=== PATIENT | female | born 1955 | race Caucasian/White ===

== ENCOUNTER 2021-11-28 14:31 | Outpatient (CLI) | payer OTHER, SELFPAY ==
--- NOTE | 2021-11-28 14:40 | CRLHL7_ITS ---
For Patients: As a result of the Century Cures Act, medical imaging exams and procedure reports are released immediately into your electronic medical record. You may view this report before your referring provider. If you have questions, please contact your health care provider. BILATERAL SCREENING MAMMOGRAM WITH COMPUTER-AIDED DETECTION AND TOMOSYNTHESIS TECHNIQUE: CC and MLO views were obtained. These mammographic images have been obtained using full-field digital technique. These mammographic images were interpreted with the benefit of computer-aided detection. Breast tomosynthesis was used in this interpretation. COMPARISON FILM: 11/22/20, 11/20/19, 11/18/18. FINDINGS: There are scattered areas of fibroglandular density. IMPRESSION: There is no radiographic evidence for malignancy. ASSESSMENT: BI-RADS Category 1: Negative RECOMMENDATION: Routine screening mammogram in 1 year. A lay language report of this examination will be provided to the patient. DMITRIY GUTIERREZ M.D. Diagnostic Radiologist [email or web address] Transcribed: 8:[address]/Dictated by: Dmitriy Gutierrez MD @ 12/01/2021 1:42:00 PM (Electronically Signed)
== END 2021-11-28 14:32 | disposition home or self-care (01) ==
LOC: MAMMO 14:32
PROVIDERS: PCP Physician Assistant Medical; Visit Provider Physician Assistant Medical
DX: Z12.31 Encounter for screening mammogram for malignant neoplasm of breast (principal)
CPT/HCPCS: 77063; 77067

== ENCOUNTER 2022-01-03 13:13 | Emergency (ER) | payer OTHER, SELFPAY ==
[2022-01-03 13:20] VITALS: BP 173/97; PULSE 73; RESP 18; TEMP 36.2; O2SAT 97; BMI 27.1
--- NOTE | 2022-01-03 13:53 | ED_ITS ---
HPI - Headache General Date Seen: 01/03/22 Chief Complaint: Headache/Migraine Stated Complaint: Cold Symptoms Time Seen by Provider: 01/03/22 13:26 Source: patient Mode of arrival: ambulatory Limitations: no limitations History of Present Illness HPI Narrative: Pleasant lady in no apparent distress she appears here for evaluation after she was unable to get an urgent care. She describes approximately week-long history of pressure in her facial region, within increasing discharged on the back of her throat and slight cough. Your symptoms characteristic of her chronic run use itis when she has an acute exacerbation. She has been trying her stay nasal steroids, with no relief, she usually gets antibiotics and a Medrol Dosepak for marked improvement. She denies no fevers no chills, she has had no shortness of breath associated with this or chest pain. She has a no nausea vomiting. She works as paraprofessional teaching special education students. She has had previous sinus surgery, for deviated septum, sees our ENT surgeon. MD elicited complaint: headache Related Data Home Medications Medication Instructions Recorded Confirmed tretinoin 0.025 % topical cream 1 applic topical ONCE 11/18/21 11/18/21 albuterol sulfate 90 mcg/actuation 2 puff inhalation Q4H PRN 12/01/21 aerosol inhaler aspirin 81 mg chewable tablet 81 mg PO QDAY 12/01/21 fluticasone furoate 100 1 inh inhalation DAILY 12/01/21 mcg-vilanterol 25 mcg/dose inhalation powder (Breo Ellipta) fluticasone propionate 50 2 spray intranasal QDAY 12/01/21 mcg/actuation nasal spray,suspension Previous Rx's Medication Instructions Recorded simvastatin 20 mg tablet 20 mg PO QDAY #90 tabs 11/04/21 tretinoin 0.025 % topical cream 1 applic topical ONCE #45 grams 11/18/21 hydrochlorothiazide 25 mg tablet 25 mg PO DAILY #90 tabs 12/02/21 omeprazole 20 mg capsule,delayed 20 mg PO DAILY #90 caps 12/02/21 release cefdinir 300 mg capsule 300 mg PO BID #20 caps 01/03/22 methylprednisolone 4 mg tablets in See Rx Instructions PO .COMPLEX 01/03/22 a dose pack (Medrol (Bernardino)) #21 ea Allergies Allergy/AdvReac Type Severity Reaction Status Date / Time amoxicillin Allergy Mild nausea and Verified 11/18/21 15:09 GI distress meperidine AdvReac Severe Nausea Verified 11/18/21 15:09 Sulfa Antibiotics Allergy Severe nausea, Uncoded 11/18/21 15:09 headache Clavulanate Allergy Mild nausea and Uncoded 11/18/21 15:09 GI distress Review of Systems Status of ROS: Reports: 6 or more systems reviewed and unremarkable except as noted in History and below [facility] Medical History Encounter for annual physical exam Encounter for preoperative screening laboratory testing for severe acute respiratory syndrome coronavirus 2 (SARS-CoV-2) Fall Pain of left forearm Strain of left shoulder Wrinkles Surgical History History of bladder suspension procedure History of bunionectomy of left great toe History of hysterectomy History of surgical procedure Family History Mother Breast cancer, Onset Age: 86 Sister Breast cancer, Onset Age: 46 Father Parkinsonism Other Dementia Family history of blood clots High blood pressure Social History Narrative: current nonsmoker does not use illicit drugs occasional alcohol consumption Smoking Status: Never smoker Exam Narrative: Exam Narrative: She appears nontoxic in no apparent distress very nice lady speaking normally. Her pupils are equal round reactive to light there is no scleral icterus noted. Her TMs bilaterally are normal, there is no tragus sign. No mastoid tenderness is noted, her oropharynx shows a thin posterior exudate, but normal tonsillar tissue, with no significant redness swelling. Her mouth opening is normal, she has some mild lymphadenopathy in her anterior change that is slightly tender. Her neck is supple full range of motion with no meningismus is noted. Skin was no petechiae rashes in cranial nerves 3-12 are normal. There is no parotid swelling. Nasal mucosa is healthy bilaterally, with site redness. Trans illumination is negative. Const: Vital Signs, click to edit/add: Vital Signs - 24 hr 01/03/22 13:20 Temperature 97.1 F L Pulse Rate [Right Pulse Oximeter] 73 Respiratory Rate 18 Blood Pressure [Ri ght Upper Arm] 173/97 H Pulse Oximetry 97 Oxygen Delivery Me thod Room Air Documenting provider has reviewed patient's vital signs: yes Course Course Hospital Course: I discussed with I do not think it is unreasonable to try the cefdinir which she was on in the past, and also the Medrol Dosepak I will send the sent to the pharmacy, I will have her follow-up with ENT on ongoing basis. Vital Signs Vital signs: Initial Vital Signs Temperature 97.1 F L 01/03/22 13:20 Temperature Source Temporal Artery Scan 01/03/22 13:20 Pulse Rate 73 01/03/22 13:20 Respiratory Rate 18 01/03/22 13:20 Blood Pressure 173/97 H 01/03/22 13:20 Blood Pressure Mean 122 01/03/22 13:20 Blood Pressure Position Sitting 01/03/22 13:20 Pulse Oximetry 97 01/03/22 13:20 Oxygen Delivery Method 01/03/22 13:20 Vital Signs Temperature 97.1 F L 01/03/22 13:20 Pulse Rate 73 01/03/22 13:20 Respiratory Rate 18 01/03/22 13:20 Blood Pressure 173/97 H 01/03/22 13:20 Pulse Oximetry 97 01/03/22 13:20 Oxygen Delivery Method 01/03/22 13:20 Temperature 97.1 F L 01/03/22 13:20 Pulse Rate 73 01/03/22 13:20 Respiratory Rate 18 01/03/22 13:20 Blood Pressure 173/97 H 01/03/22 13:20 Pulse Oximetry 97 01/03/22 13:20 Oxygen Delivery Method 01/03/22 13:20 MDM - Headache Differential Diagnosis Differential diagnosis: Likely migraine, tension headache, subarachnoid hemorrhage, headache, meningitis, sinusitis and postconcussion syndrome Medical Records Attestation: I reviewed the patient's medical records. Lab Data Attestation: I reviewed the patient's lab results. Discharge Plan Discharge Clinical Impression: Sinusitis Patient Disposition: Home, Self-Care Condition: Stable Instructions: Sinusitis (ED), Rhinosinusitis (DC) Additional Instructions: Home rest medications as directed, you were I noted on the Medrol Dosepak and that is what I prescribed to the pharmacy. Follow-up with as needed. Prescriptions: New cefdinir 300 mg capsule 300 mg PO BID Qty: 20 0RF methylprednisolone [Medrol (Bernardino)] 4 mg tablets,dose pack See Rx Instructions .ROUTE .COMPLEX Qty: 21 0RF Rx Instructions: orally per package directions No Action tretinoin 0.025 % cream 1 applic topical ONCE tretinoin 0.025 % cream 1 applic topical ONCE Qty: 45 0RF simvastatin 20 mg tablet 20 mg PO QDAY Qty: 90 3RF albuterol sulfate 90 mcg/actuation HFA aerosol inhaler 2 puff inhalation Q4H PRN fluticasone furoate-vilanterol [Breo Ellipta] 100-25 mcg/dose blister with device 1 inh inhalation DAILY fluticasone propionate 50 mcg/actuation spray,suspension 2 spray intranasal QDAY Rx Instructions: administer into each nostril aspirin 81 mg tablet,chewable 81 mg PO QDAY hydrochlorothiazide 25 mg tablet 25 mg PO DAILY Qty: 90 0RF omeprazole 20 mg capsule,delayed release(DR/EC) 20 mg PO DAILY Qty: 90 2RF Follow Up/Referrals: Jason Larson, PACeceliaC [Primary Care Provider] - Stand Alone Forms: [employer] Info Instructions
== END 2022-01-03 14:00 | disposition home or self-care (01) ==
PROVIDERS: Emergency Provider Family Medicine; PCP Physician Assistant Medical
DX: J01.90 Acute sinusitis, unspecified (principal)
CPT/HCPCS: 99283

== ENCOUNTER 2022-09-23 07:40 | Outpatient (CLI) | payer OTHER, SELFPAY | END 2022-09-23 07:41 | disposition home or self-care (01) | LOC: NFLDREF 09-26 06:59 | PROVIDERS: PCP Physician Assistant Medical; Referring Provider Physician Assistant Medical; Visit Provider Physician Assistant Medical | DX: Z00.00 Encounter for general adult medical examination without abnormal findings (principal); E78.5 Hyperlipidemia, unspecified; I10 Essential (primary) hypertension; R79.89 Other specified abnormal findings of blood chemistry | CPT/HCPCS: 80053; 80061; 84443 ==

== ENCOUNTER 2022-12-02 11:17 | Outpatient (CLI) | payer OTHER, SELFPAY ==
--- NOTE | 2022-12-02 11:30 | CRLHL7_ITS ---
For Patients: As a result of the Century Cures Act, medical imaging exams and procedure reports are released immediately into your electronic medical record. You may view this report before your referring provider. If you have questions, please contact your health care provider. BILATERAL SCREENING MAMMOGRAM WITH COMPUTER-AIDED DETECTION AND TOMOSYNTHESIS TECHNIQUE: CC and MLO views were obtained. These mammographic images have been obtained using full-field digital technique. These mammographic images were interpreted with the benefit of computer-aided detection. Breast Tomosynthesis was used in this interpretation. COMPARISON FILM: 11/28/21, 12/02/20, 11/20/19. FINDINGS: There are scattered areas of fibroglandular density IMPRESSION: There is no radiographic evidence for malignancy. ASSESSMENT: BI-RADS Category 1: Negative RECOMMENDATION: Routine screening mammogram in 1 year. A lay language report of this examination will be provided to the patient. Dmitriy Rodriguez M.D. Diagnostic Radiologist [email or web address] ASHLY/Dictated by: Dmitriy Rodriguez MD @ 12/03/2022 8:56:00 AM (Electronically Signed)
== END 2022-12-02 11:18 | disposition home or self-care (01) ==
LOC: MAMMO 11:19
PROVIDERS: PCP Physician Assistant Medical; Visit Provider Physician Assistant Medical
DX: Z12.31 Encounter for screening mammogram for malignant neoplasm of breast (principal)
CPT/HCPCS: 77063; 77067

== ENCOUNTER 2023-01-02 10:28 | Outpatient (CLI) | payer OTHER, SELFPAY | END 2023-01-02 10:29 | disposition home or self-care (01) | LOC: NFLDREF 01-06 11:08 | PROVIDERS: PCP Physician Assistant Medical; Referring Provider Physician Assistant Medical; Visit Provider Physician Assistant | DX: R35.0 Frequency of micturition (principal); N39.0 Urinary tract infection, site not specified | CPT/HCPCS: 87086 ==

== ENCOUNTER 2023-02-23 14:40 | Outpatient (CLI) | payer OTHER, SELFPAY | END 2023-02-23 14:41 | disposition home or self-care (01) | LOC: NFLDREF 02-25 11:19 | PROVIDERS: PCP Physician Assistant Medical; Referring Provider Physician Assistant Medical; Visit Provider Physician Assistant Medical | DX: E87.5 Hyperkalemia (principal) | CPT/HCPCS: 84132 ==

== ENCOUNTER 2023-02-25 14:50 | Outpatient (CLI) | payer OTHER, SELFPAY ==
--- NOTE | 2023-02-25 15:00 | CRLHL7_ITS ---
For Patients: As a result of the Century Cures Act, medical imaging exams and procedure reports are released immediately into your electronic medical record. You may view this report before your referring provider. If you have questions, please contact your health care provider. DXA BONE MINERAL DENSITY STUDY Current height (in): 67.0. Weight (lb): 170.0. Menopause age: 49. Ethnicity: White. Reason for exam: Asymptomatic menopausal state. 1. Have you had a previous hip or vertebral fracture? No. 2. Have you had any fractures during your adult life which did not result from significant trauma (e.g., auto accident)? No. 3. Did either of your parents have a hip fracture? No. 4. Do you smoke? No. 5. Have you ever taken Glucocorticoids? No. 6. Do you have rheumatoid arthritis? No. 7. Do you have secondary osteoporosis? No. 8. Do you drink 3 or more alcoholic drinks per day? No. 9. Are you being treated for osteoporosis? No. 10. Have you ever taken any of the following medications: Actonel, Evista, Fosamax, Miacalcin, Reclast, Boniva, Forteo, HRT (i.e. estrogen/hormone therapy), Protelos, Prolia, Vitamin D, Calcium, other ??? please specify. ANSWER: Yes, vitamin D, calcium, HRT. 11. Do you have any of the following medical conditions: Anorexia or bulimia, asthma or emphysema, end stage renal disease, hyperparathyroidism, any seizure disorders, cancer, inflammatory bowel diseases, hysterectomy, other ??? please specify. ANSWER: Yes, asthma, hysterectomy. 12. What was your maximum height (inches)? 68. 13. Do you perform weight bearing exercise regularly? No. 14. Do you regularly consume dairy products? Yes. 15. Do you drink caffeinated beverages? No. 16. At what age did your period start? 15. 17. Are you premenopausal? No. 18. How many full term pregnancies have you had? 2. 19. Have you ever missed your period for more than 6 months in a row (not including or menopause)? No. TECHNIQUE: Bone mineral density study was performed using the [employer]. FINDINGS: The results of the study expressed as bone mineral density (BMD) are as follows: Lumbar spine L1 to L4: BMD: 0.963 g/cm2. T-score: -0.8. Z-score: 1.0. Neck Left: BMD: 0.736 g/cm2. T-score: -1.0. Z-score: 0.5. Right: BMD: 0.708 g/cm2. T-score: -1.3. Z-score: 0.3. Total Left: BMD: 1.005 g/cm2. T-score: 0.5. Z-score: 1.7. Right: BMD: 0.708 g/cm2. T-score: -1.3. Z-score: 0.3. IMPRESSION: Osteopenia. FRAX 10-year Fracture Risk Major Osteoporotic Fracture: 8.3 percent Hip Fracture: 0.7 percent Reported Risk Factors: [place] () Neck BMD = 0.708, BMI = 26.6 Dmitriy Rodriguez M.D. Diagnostic Radiologist [email or web address] SAMANTHA/[email or web address]: Transcribed: 9:05 am DW/Dictated by: Dmitriy Rodriguez MD @ 02/26/2023 12:27:00 PM (Electronically Signed)
== END 2023-02-25 14:51 | disposition home or self-care (01) ==
LOC: RAD 14:51
PROVIDERS: PCP Physician Assistant Medical; Visit Provider Physician Assistant Medical
DX: Z78.0 Asymptomatic menopausal state (principal); M85.89 Other specified disorders of bone density and structure, multiple sites
CPT/HCPCS: 77080

== ENCOUNTER 2023-07-16 09:38 | Outpatient (CLI) | payer OTHER, SELFPAY ==
--- NOTE | 2023-07-16 10:00 | CT_ITS ---
Patient: TRI CHU Facility:?[facility] Patient ID:?[id number] Site Patient ID:?[id number]. Site :?[id number] Study:?CT-Sinus WITHOUT-07/16/2023 10:02:53 AM Ordering Physician:?DR. CONWAY Final Report: INDICATION: Sinusitis. TECHNIQUE: Noncontrast CT images of the paranasal sinuses. COMPARISON: CT sinus 05/18/2019. FINDINGS: No air-fluid levels to suggest acute sinusitis. Small maxillary sinus retention cysts or polyps. Mild right and minimal left maxillary sinus mucosal thickening. The ethmoid infundibula are widely patent. [id number] right and mild left frontal recess mucosal thickening. The frontal sinuses are otherwise clear. Mild mucosal thickening ethmoid air cells. Moderate right and mild left sphenoid sinus mucosal thickening. The sphenoethmoidal recesses are opacified. There is 3 mm rightward nasal septal deviation. No nasal cavity masses. The mastoid air cells are clear. IMPRESSION: 1. Worsening moderate right sphenoid sinus mucosal thickening. There is otherwise mild paranasal sinus mucosal disease. No air-fluid levels to suggest acute sinusitis. 2. Mild rightward nasal septal deviation. Please note that all CT scans at this facility use dose modulation, iterative reconstruction, and/or weight-based dosing when appropriate to reduce radiation dose to as low as reasonably achievable. Dictated by Adarsh Grider MD @ 07/18/2023 6:16:01 PM Signed by:?Adarsh Grider MD @07/18/2023 6:16:01 PM
== END 2023-07-16 09:39 | disposition home or self-care (01) ==
LOC: CT 09:39
PROVIDERS: PCP Physician Assistant Medical; Visit Provider Otolaryngology
DX: J32.9 Chronic sinusitis, unspecified (principal); J32.3 Chronic sphenoidal sinusitis; J34.2 Deviated nasal septum
CPT/HCPCS: 70486

== ENCOUNTER 2023-08-27 09:33 | Day surgery (SDC) | payer OTHER, SELFPAY ==
[2023-08-27] VITALS (13 sets, daily range): BP systolic 138–174; BP diastolic 84–100; PULSE 67–78; RESP 12–25; TEMP 36.4–37.1; O2SAT 93–98; BMI 28.5
[2023-08-27] MEDS: SODIUM CHLORIDE 0.9 % (FLUSH) 10 ML SYRINGE IVF (10:00)
[2023-08-27] MEDS: LACTATED RINGERS 1000 ML 1,000 ML 100 ML IV (10:00)
[2023-08-27] MEDS: ONDANSETRON 2 MG/ML inj 4 MG IVP (10:15)
[2023-08-27] MEDS: OXYMETAZOLINE 0.05% NASAL SPRAY 2 SPRAY NOSTRIL-B (11:00)
[2023-08-27] MEDS: COCAINE HCL 4 % 4 ML SOLUTION NOSTRIL-B (12:00)
[2023-08-27] MEDS: BUPIVACAINE 0.5%/EPINEPHRINE 0.9 MG (30.9 ML) INJECTION (12:04)
[2023-08-27] MEDS: AYR SALINE NASAL GEL 1 APPLIC NOSTRIL-B (12:10)
[2023-08-27] MEDS: MUPIROCIN 1 GM PACKET 1 APPLIC TOPICAL (12:13)
--- NOTE | 2023-08-27 12:20 | P.ENTPROC_ITS ---
Procedure Note Date of procedure: 08/27/23 Procedure: Preop diagnosis septal deviation superior right, bilateral chronic ethmoid sinusitis, right chronic sphenoid sinusitis Postoperative diagnosis same Procedure is nasal septoplasty, endoscopic right sphenoidotomy and complete ethmoidectomy, endoscopic left anterior ethmoidectomy Under general endotracheal anesthesia patient was prepped and draped usual fashion nose decongested and injected. Note that the image guidance system was used with 1.5 mm accuracy. He the left ethmoid bulla was identified and this was confirmed with image guidance. The bulla was opened and anterior ethmoidectomy performed removing a small to moderate amount of polypoid tissue. Incision was made in the septum anterior to the right area 3 deflection. The mucosa overlying the deflection was elevated and then the [place] knife was used to cut through the cartilage and elevate the mucosa on the opposite side. The deflected portion of septal bone cartilage was resected and then trimmed and returned to intraseptal space. The ethmoid bulla was identified and confirmed with image guidance and then opened. A complete ethmoidectomy was performed removing a moderate amount of polypoid tissue. The sphenoid os was identified and confirmed by image guidance and then entered with a suction. A small amount of fluid was aspirated. The opening was enlarged to 4 mm in diameter with a sphenoid punch. Merocel packing was placed in the middle meatus on each side. The patient procedure well was taken recurrent covering in satisfactory condition. Specimens were sent to pathology labeled right sphenoid ethmoid contents and left separately left ethmoid contents. Blood loss was 25 mL. Surgeon: Esvin De Santiago MD
--- NOTE | 2023-08-27 12:25 | W.ANESCHARGE ---
Anesthesia Charges Start Date/Time Anesthesia Start Date: 08/27/23 Anesthesia Start Time: 11:37 Stop Date/Time Anesthesia Stop Date: 08/27/23 Anesthesia Stop Time: 12:24
--- NOTE | 2023-08-27 12:25 | W.ANESCHARGE ---
Anesthesia Charges Start Date/Time Anesthesia Start Date: 08/27/23 Anesthesia Start Time: 11:37 Stop Date/Time Anesthesia Stop Date: 08/27/23 Anesthesia Stop Time: 12:24
[2023-08-27] MEDS: OXYCODONE 5 MG TABLET PO (13:58)
== END 2023-08-27 14:20 | disposition home or self-care (01) ==
PROVIDERS: PCP Physician Assistant Medical; Visit Provider Otolaryngology
PROC: (CPT 31231; principal; 2023-08-27 10:45)
DX: J34.2 Deviated nasal septum (principal); J32.2 Chronic ethmoidal sinusitis; J32.3 Chronic sphenoidal sinusitis
CPT/HCPCS: 30520; 31257; 31254; 00160; 88305; A9270; J0330; J1100; J2405; J2704; J3010; J7120

== ENCOUNTER 2023-09-28 07:39 | Outpatient (CLI) | payer OTHER, SELFPAY | END 2023-09-28 07:40 | disposition home or self-care (01) | LOC: NFLDREF 10-02 12:35 | PROVIDERS: PCP Physician Assistant Medical; Referring Provider Physician Assistant Medical; Visit Provider Physician Assistant Medical | DX: Z00.00 Encounter for general adult medical examination without abnormal findings (principal); I10 Essential (primary) hypertension; E78.2 Mixed hyperlipidemia; K21.9 Gastro-esophageal reflux disease without esophagitis; R73.03 Prediabetes; R79.89 Other specified abnormal findings of blood chemistry | CPT/HCPCS: 80053; 80061; 84443 ==

== ENCOUNTER 2023-12-07 09:18 | Outpatient (CLI) | payer OTHER, SELFPAY ==
--- NOTE | 2023-12-07 09:15 | CRLHL7_ITS ---
For Patients: As a result of the Century Cures Act, medical imaging exams and procedure reports are released immediately into your electronic medical record. You may view this report before your referring provider. If you have questions, please contact your health care provider. BILATERAL SCREENING MAMMOGRAM WITH COMPUTER-AIDED DETECTION AND TOMOSYNTHESIS TECHNIQUE: CC and MLO views were obtained. These mammographic images have been obtained using full-field digital technique. These mammographic images were interpreted with the benefit of computer-aided detection. Breast Tomosynthesis was used in this interpretation. COMPARISON FILM: 12/02/22, 11/28/21, 11/22/20. FINDINGS: There are scattered areas of fibroglandular density. IMPRESSION: There is no radiographic evidence for malignancy. ASSESSMENT: BI-RADS Category 1: Negative RECOMMENDATION: Routine screening mammogram in 1 year. A lay language report of this examination will be provided to the patient. Dmitriy Rodriguez M.D. Diagnostic Radiologist [email or web address] SP/Dictated by: Dmitriy Rodriguez MD @ 12/07/2023 10:47:00 AM (Electronically Signed)
== END 2023-12-07 09:19 | disposition home or self-care (01) ==
PROVIDERS: PCP Physician Assistant Medical; Visit Provider Physician Assistant Medical
DX: Z12.31 Encounter for screening mammogram for malignant neoplasm of breast (principal)
CPT/HCPCS: 77063; 77067

== ENCOUNTER 2023-12-27 10:03 | Outpatient (CLI) | payer OTHER, SELFPAY | END 2023-12-27 10:04 | disposition home or self-care (01) | LOC: NFLDREF 12-31 15:36 | PROVIDERS: PCP Physician Assistant Medical; Referring Provider Physician Assistant Medical; Visit Provider Physician Assistant Medical | DX: R31.9 Hematuria, unspecified (principal); N39.0 Urinary tract infection, site not specified; N30.01 Acute cystitis with hematuria | CPT/HCPCS: 87086 ==

== ENCOUNTER 2023-12-29 15:38 | Outpatient (CLI) | payer OTHER, SELFPAY | END 2023-12-29 15:39 | disposition home or self-care (01) | LOC: FRMREF 15:41 | PROVIDERS: PCP Physician Assistant Medical; Visit Provider Physician Assistant Medical | DX: R10.30 Lower abdominal pain, unspecified (principal) | CPT/HCPCS: 80053 ==

== ENCOUNTER 2024-01-06 07:46 | Outpatient (CLI) | payer OTHER, SELFPAY ==
--- NOTE | 2024-01-06 08:00 | CRLHL7_ITS ---
For Patients: As a result of the Century Cures Act, medical imaging exams and procedure reports are released immediately into your electronic medical record. You may view this report before your referring provider. If you have questions, please contact your health care provider. INDICATION: Recent UTI, still with some pelvic pain. TECHNIQUE: CT abdomen and pelvis without contrast. COMPARISON: CT abdomen and pelvis 10/28/2018 abdominal ultrasound . FINDINGS: Lower chest: Unremarkable. Liver: Normal in size and attenuation. No suspicious masses. Gallbladder and bile ducts: No stones or inflammation. No biliary dilatation. Pancreas: Unremarkable. No mass or inflammation. Spleen: Normal in size. No masses. Adrenal glands: Normal in size. No nodules. Kidneys: Normal in size. No suspicious masses, stones, or hydronephrosis. GI tract: Unremarkable. Normal in caliber. No sign of mass or inflammation. Vasculature: Abdominal aorta is normal in caliber. Lymph nodes: No lymphadenopathy. Peritoneum/Abdominal Wall: Unremarkable. No sign of mass or infiltration. No free air or significant free fluid. Pelvis: Prior hysterectomy. No pelvic masses. Bones: Unremarkable for age. IMPRESSION: No acute findings in the abdomen or pelvis, noting limited evaluation of the soft tissues in the absence of intravenous contrast. Please note that all CT scans at this facility use dose modulation, iterative reconstruction, and/or weight-based dosing when appropriate to reduce radiation dose to as low as reasonably achievable. Dictated by Domenica Carpenter MD @ 01/07/2024 10:53:08 AM (Electronically Signed)
== END 2024-01-06 07:47 | disposition home or self-care (01) ==
LOC: CT 07:46
PROVIDERS: PCP Physician Assistant Medical; Visit Provider Physician Assistant Medical
DX: R10.2 Pelvic and perineal pain (principal); R19.8 Other specified symptoms and signs involving the digestive system and abdomen
CPT/HCPCS: 74176

== ENCOUNTER 2024-09-29 07:35 | Outpatient (CLI) | payer OTHER, SELFPAY | END 2024-09-29 07:36 | disposition home or self-care (01) | LOC: NFLDREF 10-02 20:28 | PROVIDERS: PCP Physician Assistant Medical; Referring Provider Physician Assistant Medical; Visit Provider Physician Assistant Medical | DX: I10 Essential (primary) hypertension (principal); E78.2 Mixed hyperlipidemia; R79.89 Other specified abnormal findings of blood chemistry; R73.03 Prediabetes | CPT/HCPCS: 80053; 80061; 84443 ==

== ENCOUNTER 2025-01-02 14:17 | Outpatient (CLI) | payer OTHER, SELFPAY | END 2025-01-02 14:18 | disposition home or self-care (01) | LOC: NFLDREF 01-08 17:50 | PROVIDERS: PCP Physician Assistant Medical; Referring Provider Physician Assistant Medical; Visit Provider Physician Assistant Medical | DX: N30.00 Acute cystitis without hematuria (principal) | CPT/HCPCS: 77063; 77067; 87086 ==

== ENCOUNTER 2025-01-02 15:45 | Outpatient (CLI) | payer OTHER, SELFPAY ==
--- NOTE | 2025-01-02 16:00 | CRLHL7_ITS ---
For Patients: As a result of the Century Cures Act, medical imaging exams and procedure reports are released immediately into your electronic medical record. You may view this report before your referring provider. If you have questions, please contact your health care provider. INDICATION: BILATERAL SCREENING MAMMOGRAM, ASYMPTOMATIC Y/O FEMALE COMPARISON: 12/07/2023, 12/02/2022, 11/28/2021 TECHNIQUE: Digital mammogram in CC and MLO projections including computer-aided detection (CAD) and tomosynthesis. BREAST COMPOSITION: There are scattered areas of fibroglandular density. FINDINGS: No suspicious findings. ASSESSMENT: BI-RADS 1 Negative RECOMMENDATION: Annual screening mammogram. A lay language report of this examination will be provided to the patient. Dictated by: Dmitriy Rodriguez MD @ 01/03/2025 10:38:26 (Electronically Signed)
== END 2025-01-02 15:46 | disposition home or self-care (01) ==
LOC: MAMMO 15:45
PROVIDERS: PCP Physician Assistant Medical; Visit Provider Physician Assistant Medical
DX: Z12.31 Encounter for screening mammogram for malignant neoplasm of breast (principal); N30.00 Acute cystitis without hematuria
CPT/HCPCS: 77063; 77067

== ENCOUNTER 2025-02-28 15:09 | Outpatient (CLI) | payer OTHER, SELFPAY ==
--- NOTE | 2025-02-28 15:00 | CRLHL7_ITS ---
For Patients: As a result of the Century Cures Act, medical imaging exams and procedure reports are released immediately into your electronic medical record. You may view this report before your referring provider. If you have questions, please contact your health care provider. XR DXA Bone Mineral Density (BMD) Reason for exam: Asymptomatic menopausal state. Current height (inches): 67.0 Weight (lbs.): 175.0 Menopause age: 49 Ethnicity: White 1. Have you had a previous hip or vertebral fracture? No. 2. Have you had any fractures during your adult life which did not result from significant trauma (e.g., auto accident)? No. 3. Did either of your parents have a hip fracture? No. 4. Do you smoke? No. 5. Have you ever taken Glucocorticoids? No. 6. Do you have rheumatoid arthritis? No. 7. Do you have secondary osteoporosis? No. 8. Do you drink 3 or more alcoholic drinks per day? No. 9. Are you being treated for osteoporosis? No. 10. Have you ever taken any of the following medications: Actonel, Evista, Fosamax, Miacalcin, Reclast, Boniva, Forteo, HRT (i.e., estrogen/hormone therapy), Protelos, Prolia, Vitamin D, Calcium, other ??? please specify. ANSWER: Yes; HRT, vitamin D and calcium. 11. Do you have any of the following medical conditions: Anorexia or bulimia, asthma or emphysema, end stage renal disease, hyperparathyroidism, any seizure disorders, cancer, inflammatory bowel diseases, hysterectomy, other ??? please specify. ANSWER: Yes; asthma/emphysema, hysterectomy. 12. What was your maximum height (inches)? 68. 13. Do you perform weightbearing exercise regularly? Yes. 14. Do you regularly consume dairy products? Yes. 15. Do you drink caffeinated beverages? No. 16. At what age did your period start? 15. 17. Are you premenopausal? No. 18. How many full-term pregnancies have you had? 2. 19. Have you ever missed your period for more than 6 months in a row (not including or menopause)? No. TECHNIQUE: Bone mineral density study was performed using the [employer]. FINDINGS: The results of the study expressed as bone mineral density (BMD) are as follows: Lumbar Spine L1 to L4: BMD: 0.946 g/cm2. T-score: -0.9. Z-score: 1.0. Neck Left: BMD: 0.695 g/cm2. T-score: -1.4. Z-score: 0.2. Right: BMD: 0.733 g/cm2. T-score: -1.0. Z-score: 0.6. Total Left: BMD: 1.008 g/cm2. T-score: 0.5. Z-score: 1.9. Right: BMD: 1.000 g/cm2. T-score: 0.5. Z-score: 1.8. IMPRESSION: Osteopenia. COMPARISON: Compared with scan of 02/25/2023, the bone mineral density has decreased by 1.8% at the spine and decreased by 0.3% at the hip. *Comparison exams done prior to 09/2019 were performed on different unit, [facility]. FRAX 10-year Fracture Risk Major Osteoporotic Fracture: 9.2% Hip Fracture: 1.0% Reported Risk Factors: [place] () Neck BMD = 0.695, BMI = 27.4. DMITRIY GUTIERREZ M.D. Diagnostic Radiologist [email or web address] Transcribed: 3:[address]/Dictated by: Dmitriy Gutierrez MD @ 03/01/2025 8:10:00 AM (Electronically Signed)
== END 2025-02-28 15:10 | disposition home or self-care (01) ==
LOC: RAD 15:10
PROVIDERS: PCP Physician Assistant Medical; Visit Provider Physician Assistant Medical
DX: Z13.820 Encounter for screening for osteoporosis (principal); Z78.0 Asymptomatic menopausal state
CPT/HCPCS: 77080